=== PATIENT | female | born 1990 | race Two or more races ===

== ENCOUNTER → 2022-12-16 | Outpatient (CLI) | payer MEDICAID ==
[2022-12-16 08:45] LABS: Basophils # (auto) 0 10 ^3/uL (0-0.2); Basophils % (auto) 0.4 % (0.0-2.0); Eosinophils # (auto) 0.1 10 ^3/uL (0-0.8); Eosinophils % (auto) 1.7 % (0.0-7.0); Hematocrit 32.8 % (36.0-46.0); Hemoglobin 10.9 g/dL (12.2-16.2); Lymphocytes # (auto) 1.2 10 ^3/uL (0.4-5.4); Lymphocytes % (auto) 15.2 % (10.0-50.0); Mean Corpuscular Hemoglobin 29.3 pg (28.0-32.0); Mean Corpuscular Hgb Conc. 33.1 g/dL (32.0-36.0); Mean Corpuscular Volume 88.6 fL (80.0-100.0); Monocytes # (auto) 0.5 10 ^3/uL (0-1.3); Monocytes % (auto) 6.5 % (0.0-12.0); Neutrophils # (auto) 6.3 10 ^3/uL (1.6-8.6); Neutrophils % (auto) 76.2 % (37.0-80.0); Red Blood Cells 3.71 10^6/uL (4.0-5.20); Red Cell Distribution Width 14.6 % (11.8-14.3); White Blood Cell 8.2 10^3/uL (4.4-10.8)
[2022-12-17 07:07] LABS: RPR Non Reactive (Non Reactive)
== END | disposition home or self-care (01) ==
LOC: LAB 08:32
PROVIDERS: ATTEND Obstetrics & Gynecology
DX: Z34.80 Encounter for supervision of other normal pregnancy, unspecified trimester (principal); Z3A.00 Weeks of gestation of pregnancy not specified
CPT/HCPCS: 36415; 84112; 85025; 86592

== ENCOUNTER 2023-01-11 05:16 | Inpatient (IN) | payer MEDICAID ==
[2023-01-09 11:35] LABS: Basophils # (auto) 0 10 ^3/uL (0-0.2); Basophils % (auto) 0.4 % (0.0-2.0); Eosinophils # (auto) 0.1 10 ^3/uL (0-0.8); Eosinophils % (auto) 1.4 % (0.0-7.0); Hematocrit 32.8 % (36.0-46.0); Hemoglobin 10.8 g/dL (12.2-16.2); Lymphocytes # (auto) 1.2 10 ^3/uL (0.4-5.4); Lymphocytes % (auto) 15.8 % (10.0-50.0); Mean Corpuscular Hgb Conc. 32.9 g/dL (32.0-36.0); Mean Corpuscular Volume 88.3 fL (80.0-100.0); Monocytes # (auto) 0.5 10 ^3/uL (0-1.3); Monocytes % (auto) 6.7 % (0.0-12.0); Neutrophils # (auto) 5.8 10 ^3/uL (1.6-8.6); Neutrophils % (auto) 75.7 % (37.0-80.0); Red Blood Cells 3.71 10^6/uL (4.0-5.20); Red Cell Distribution Width 15.7 % (11.8-14.3); White Blood Cell 7.7 10^3/uL (4.4-10.8)
[2023-01-09 11:44] LABS: Albumin 2.4 g/dL (3.4-5.0); Calcium 8.8 mg/dL (8.5-10.1); Potassium 3.9 mmol/L (3.5-5.1)
[2023-01-09 11:47] LABS: BUN/Creatinine Ratio 14.3 (10.0-20.0); Bilirubin, Total 0.2 mg/dL (0.2-1.0); Total Protein 6.6 g/dL (6.4-8.2)
[2023-01-09 11:50] LABS: INR 0.89 (0.9-1.15); Partial Thromboplastin Time 26.2 SEC (24.5-34.5)
[2023-01-09 11:52] LABS: Alcohol, Urine < 3.0 mg/dL (0-10); Amphetamine Screen, Urine NEGATIVE (NEGATIVE); Barbiturate Scree,Urine NEGATIVE (NEGATIVE); Benzodiazephine Screen, Urine NEGATIVE (NEGATIVE); Cannabinoid Screen, Urine NEGATIVE (NEGATIVE); Cocaine Screen, Urine NEGATIVE (NEGATIVE); Opiate Scree,Urine NEGATIVE (NEGATIVE); Phencyclidine Screen, Urine NEGATIVE (NEGATIVE)
[2023-01-09 11:53] LABS: Urine Bacteria FEW /hpf (None Seen); Urine Blood TRACE /uL (Negative); Urine Mucus FEW (None Seen); Urine Specific Gravity 1.024 (1.001-1.035); Urine WBC 519 /hpf (0 - 5)
[2023-01-10 07:06] LABS: RPR Non Reactive (Non Reactive)
[~2023-01-11] VITALS: Ht 160 cm; Wt 105.2 kg
[2023-01-11] VITALS (20 sets, daily range): BP systolic 102–128; BP diastolic 61–98
[2023-01-11] MEDS ORDERED: METOCLOPRAMIDE HCL 5MG/ml INJ 2ml VIAL IV ONE (05:30)
[2023-01-11] MEDS ORDERED: LACTATED RINGER'S 1,000 ML IV ONE (05:30)
[2023-01-11] MEDS ORDERED: SODIUM CITR/CITRIC ACID ORAL SOLN 30 ML PO ONE (05:30)
[2023-01-11] MEDS: LACTATED RINGER'S 1,000 ML IV SCH ×3 (06:43→23:36)
[2023-01-11] MEDS ORDERED: TETRACAINE 1% INJ 2 ML VIAL IJ ONE (07:00)
[2023-01-11] MEDS ORDERED: ceFAZolin 2 GM/D5W100ml 100 ML IV ONE (07:15)
[2023-01-11 07:55] LABS: Urine Bacteria MANY /hpf (None Seen); Urine Blood TRACE /uL (Negative); Urine Hyaline Cast FEW /lpf (0 - 2); Urine Mucus FEW (None Seen); Urine Specific Gravity 1.023 (1.001-1.035); Urine WBC 191 /hpf (0 - 5); Urine WBC Clumps PRESENT /hpf (None Seen)
[2023-01-11] MEDS ORDERED: HYDR-4902 PO (07:57)
[2023-01-11] MEDS ORDERED: DOCU-94 PO (07:57)
[2023-01-11] MEDS ORDERED: ONDANSETRON HCL 4 MG/2 ML VIAL IV PRN ×3 (08:00→09:45)
[2023-01-11] MEDS ORDERED: LACT. RINGERS/OXYTOCIN 20UNITS 1,000 ML IV ONE (08:00)
[2023-01-11] MEDS ORDERED: GUM (CHEWING) 1 GUM CHEW CHEW ONE (08:00)
[2023-01-11] MEDS ORDERED: ceFAZolin 1GM/50ML 50 ML IV SCH (08:00)
[2023-01-11] MEDS ORDERED: MORPHINE SULF PF 5 MG/10 ML VIAL ONE (08:05)
[2023-01-11] MEDS ORDERED: fentaNYL CITRATE 100 MCG/2 ML VL ONE (08:05)
[2023-01-11] MEDS ORDERED: MIDAZOLAM HCL 2MG/2ML 2ml VIAL (1mg/ml) ONE (08:05)
[2023-01-11] MEDS ORDERED: oxyTOCIN 10 UNIT/ML 10ML VIAL ONE (08:19)
[2023-01-11 08:42] LABS: Alcohol, Urine < 3.0 mg/dL (0-10); Amphetamine Screen, Urine NEGATIVE (NEGATIVE); Barbiturate Scree,Urine NEGATIVE (NEGATIVE); Benzodiazephine Screen, Urine NEGATIVE (NEGATIVE); Cannabinoid Screen, Urine NEGATIVE (NEGATIVE); Cocaine Screen, Urine NEGATIVE (NEGATIVE); Opiate Scree,Urine NEGATIVE (NEGATIVE); Phencyclidine Screen, Urine NEGATIVE (NEGATIVE)
[2023-01-11] MEDS ORDERED: NALOXONE HCL 0.4 MG/ML VIAL IV PRN (09:45)
[2023-01-11] MEDS ORDERED: LABETALOL HCL 5 MG/ML 4ML SYRINGE IV PRN (09:45)
[2023-01-11] MEDS ORDERED: HYDROmorphone HCL 2 MG/ML VL/or syr IV PRN ×2 (09:45)
[2023-01-11] MEDS ORDERED: diphenhdrAMINE HCL 50 MG/1 ML VL IV PRN (09:45)
[2023-01-11] MEDS ORDERED: ePHEDrine SULFATE 50 MG/ML AMP IV PRN (09:45)
[2023-01-11] MEDS ORDERED: MIDAZOLAM HCL 2MG/2ML 2ml VIAL (1mg/ml) IV PRN (09:45)
[2023-01-11] MEDS ORDERED: DexAMETHasone SOD PHOS 10MG/1ML VIAL INJ IV PRN (09:45)
[2023-01-11] MEDS: ACETAMINOPHEN IV 1000 MG/100ML (10MG/ML) IV PRN ×2 (10:34→18:25)
[2023-01-11] MEDS ORDERED: PHENYLEPHRINE HCL 10 MG/ML VL IV ONE (12:28)
[2023-01-11] MEDS: ceFAZolin 1GM/50ML 50 ML IV SCH ×2 (15:54→23:37)
[2023-01-11 22:35] LABS: Basophils # (auto) 0.1 10 ^3/uL (0-0.2); Basophils % (auto) 0.5 % (0.0-2.0); Eosinophils # (auto) 0.1 10 ^3/uL (0-0.8); Eosinophils % (auto) 0.7 % (0.0-7.0); Hematocrit 31.8 % (36.0-46.0); Hemoglobin 10.2 g/dL (12.2-16.2); Lymphocytes # (auto) 1.3 10 ^3/uL (0.4-5.4); Mean Corpuscular Hemoglobin 28.6 pg (28.0-32.0); Mean Corpuscular Hgb Conc. 32.2 g/dL (32.0-36.0); Mean Corpuscular Volume 88.9 fL (80.0-100.0); Monocytes # (auto) 0.5 10 ^3/uL (0-1.3); Monocytes % (auto) 5.2 % (0.0-12.0); Neutrophils # (auto) 8.5 10 ^3/uL (1.6-8.6); Neutrophils % (auto) 81.6 % (37.0-80.0); Red Blood Cells 3.58 10^6/uL (4.0-5.20); Red Cell Distribution Width 15.7 % (11.8-14.3); White Blood Cell 10.4 10^3/uL (4.4-10.8)
[2023-01-12] VITALS (16 sets, daily range): BP systolic 102–135; BP diastolic 62–92
[2023-01-12] MEDS: ACETAMINOPHEN IV 1000 MG/100ML (10MG/ML) IV PRN (02:06)
[2023-01-12 05:52] LABS: Basophils # (auto) 0.1 10 ^3/uL (0-0.2); Basophils % (auto) 0.6 % (0.0-2.0); Eosinophils # (auto) 0.1 10 ^3/uL (0-0.8); Hematocrit 30.1 % (36.0-46.0); Hemoglobin 10.1 g/dL (12.2-16.2); Lymphocytes # (auto) 1.1 10 ^3/uL (0.4-5.4); Lymphocytes % (auto) 11.3 % (10.0-50.0); Mean Corpuscular Hemoglobin 29.4 pg (28.0-32.0); Mean Corpuscular Hgb Conc. 33.5 g/dL (32.0-36.0); Mean Corpuscular Volume 87.8 fL (80.0-100.0); Monocytes # (auto) 0.5 10 ^3/uL (0-1.3); Monocytes % (auto) 4.8 % (0.0-12.0); Neutrophils # (auto) 8.3 10 ^3/uL (1.6-8.6); Neutrophils % (auto) 82.3 % (37.0-80.0); Red Blood Cells 3.43 10^6/uL (4.0-5.20); Red Cell Distribution Width 16.1 % (11.8-14.3); White Blood Cell 10.1 10^3/uL (4.4-10.8)
[2023-01-12] MEDS ORDERED: HYDROcodone-ACET 5/325MG TAB PO PRN (06:30)
[2023-01-12] MEDS ORDERED: BISACODYL 10 MG RECT SUPP PR PRN (06:30)
[2023-01-12] MEDS ORDERED: IBUPROFEN 800 MG TAB PO PRN (06:30)
[2023-01-12] MEDS: ceFAZolin 1GM/50ML 50 ML IV SCH (07:50)
[2023-01-12] MEDS ORDERED: DOCUSATE CALCIUM 240 MG CAP PO SCH (10:00)
[2023-01-12] MEDS: DOCUSATE SOD 100 MG CAP PO SCH ×2 (10:05→21:51)
[2023-01-12] MEDS: SIMETHICONE 80 MG CHEWABLE TABLET PO SCH ×3 (11:31→21:51)
[2023-01-12] MEDS: LACTATED RINGER'S 1,000 ML IV SCH (13:30)
[2023-01-12] MEDS: HYDROcodone-ACET 5/325MG TAB PO PRN (14:24)
[2023-01-13] MEDS ORDERED: HYDROcodone-ACET 5/325MG TAB ONE (01:27)
[2023-01-13] MEDS: HYDROcodone-ACET 5/325MG TAB PO PRN (01:30)
[2023-01-13] MEDS: SIMETHICONE 80 MG CHEWABLE TABLET PO SCH (05:48)
[2023-01-13 07:20] VITALS: BP 120/79
[2023-01-13 11:00] VITALS: BP 123/76
== END 2023-01-13 12:29 | disposition home or self-care (01) | DRG 539 ==
LOC: LDRP 05:16 → EDSTATUS 10:41 → LDRP 12:10
PROVIDERS: ADMIT Obstetrics & Gynecology; ATTEND Obstetrics & Gynecology
PROC: 0UL70CZ Occlusion of Bilateral Fallopian Tubes with Extraluminal Device, Open Approach (ICD-10-PCS; 2023-01-11)
PROC: 10D00Z1 Extraction of Products of Conception, Low, Open Approach (ICD-10-PCS; principal; 2023-01-11 07:57)
DX: O34.211 Maternal care for low transverse scar from previous cesarean delivery (principal); Z30.2 Encounter for sterilization; Z37.0 Single live birth; Z3A.39 39 weeks gestation of pregnancy
CPT/HCPCS: 36415; 59025; 80053; 80307; 81001; 82962; 85025; 85610; 85730; 86592; 86850; 86900; 86901; 94760; 94762; 96360; 96361; 96366; G0378; J0131; J0690; J2250; J2590

== ENCOUNTER 2023-07-18 20:18 | Emergency (ER) | payer MEDICAID ==
[~2023-07-18] VITALS: Ht 152.4 cm; Wt 107.0 kg
[~2023-07-18 20:18] MED LIST: DOCU-94 PO; HYDR-4902 PO
[2023-07-18 20:25] VITALS: BP 135/85; PULSE 75; RESP 16; TEMP 97.9
[2023-07-18] MEDS ORDERED: AMOX875T3 PO (22:28)
[2023-07-18 22:29] VITALS: O2SAT 100
== END 2023-07-18 22:35 | disposition home or self-care (01) ==
LOC: ER 20:18
DX: H66.91 Otitis media, unspecified, right ear (principal)

== ENCOUNTER 2024-09-11 20:30 | Emergency (ER) | payer MEDICAID ==
[~2024-09-11] VITALS: Ht 165.1 cm; Wt 114.8 kg
[~2024-09-11 20:30] MED LIST changes: +AMOX875T3 PO
[2024-09-11 21:42] LABS: Urine Bacteria None Seen /hpf (None Seen)
[2024-09-11 21:56] LABS: Urine Blood Negative /uL (Negative); Urine Clarity Ex.Turbid (Clear); Urine Color Colorless (Yellow); Urine Protein, UAD TRACE (Negative); Urine Squamous Epithelial Cell MOD /hpf (<5); Urine Urobilinogen 2 mg/dL (Negative); Urine WBC 21 /HPF (0-5)
[2024-09-11 23:52] VITALS: BP 134/82; TEMP 97.5
--- NOTE | 2024-09-11 23:53 | ED.PDOC ---
HPI (NEURO) HPI Comments PT C/O HEADACHE STARTING AROUND 1300 TODAY. TOOK 2 ADVIL AT 1850, STATES HER PAIN HAS IMPROVED. WAS EXPERIENCING DIZZINESS EARLIER, NOT CURRENTLY. STATES HER BP WAS HIGH AT HOME BUT CANNOT REMEMBER HOW HIGH. CURRENTLY BP IS 126/74. NO MEDICAL DENIES NUMBNESS, WEAKNESS, CHEST PAIN, SHORTNESS OF BREATH, WORST HEADACHE OF HER LIFE, FEVER, CHILLS, NAUSEA, VOMITING, BLURRED VISION, OR ANY FOCAL NEURO DEFICITS. HISTORY. 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 History Social History Smoker: Non-Smoker Alcohol: Denies ETOH Use Drugs: Denies Drug Use Constitutional: denies: chills, diaphoresis, fatigue, fever, malaise, sweats, weakness, others EENTM: denies: blurred vision, double vision, ear bleeding, ear discharge, ear drainage, ear pain, ear ringing, eye pain, eye redness, hearing loss, mouth buck n, mouth swelling, nasal discharge, nose bleeding, nose congestion, nose pain, photophobia, tearing, throat pain, throat swelling, voice changes, others Respiratory: denies: cough, hemoptysis, orthopnea, SOB at rest, shortness of breath, SOB with excertion, stridor, wheezing, others Cardiovascular: denies: chest pain, dizzy spells, diaphoresis, Dyspnea on exertion, edema, irregular heart beat, left arm pain, lightheadedness, palpitations, PND, syncope, others Gastrointestinal: denies: abdomen distended, abdominal pain, blood streaked bowels, constipated, diarrhea, dysphagia, difficulty swallowing, hematemesis, melena, nausea, poor appetite, poor fluid intake, rectal bleeding, rectal pain, vomiting, others Genitourinary: denies: abnormal vagina bleeding, burning, dyspareunia, dysuria, flank pain, frequency, hematuria, incontinence, pain, , vagina discharge, urgency, others Neurological: reports: headache; denies: dizziness, fainting, left sided numbness, left sided weakness, numbness, paresthesia, pre-existing deficit, right sided numbness, right sided weakness, seizure, speech problems, tingling, tremors, weakness, others Musculoskeletal: denies: back pain, gout, joint pain, joint swelling, muscle pain, muscle stiffness, neck pain, others Integumetry: denies: bruises, change in color, change in hair/nails, dryness, laceration, lesions, lumps, rash, wounds, others Allergic/Immunocompromised: denies: Difficulty Healing, Frequent Infections, Hives, Itching, others Hematologic/Lymphatic: denies: anemia, blood clots, easy bleeding, easy bruisin g, swollen glands, others Endocrine: denies: excessive hunger, excessive sweating, excessive thirst, excessive urination, flushing, intolerance to cold, intolerance to heat, unexplained weight gain, unexplained weight loss, others Psychiatric: denies: anxiety, bipolar disorder, depression, hopeless, panic disorder, schizophrenia, sleepless, suicidal, others Physical Exam General Appearance: No Apparent Distress, Normal HEENT: Normal ENT Inspection, Pharynx Normal, TMs Normal Neck: Full Range of Motion, Non-Tender Respiratory: Lungs Clear, No Respiratory Distress, Normal Breath Sounds Cardiovascular: No Edema, No JVD, No Murmur, No Gallop, Normal Peripheral Pulses, Regular Rate/Rhythm Breast Exam: Deferred Gastrointestinal: No Organomegaly, Non Tender, No Pulsatile Mass, Normal Bowel Sounds, Soft Genitalia: Deferred Pelvic: Deferred Rectal: Deferred Extremities: Normal capillary refill, Normal inspection, Normal range of motion, Non-tender, No pedal edema Musculoskeletal : Apperance: Normal Neurologic: Alert, international operations manager II-XII nml as Tested, No Motor Deficits, Normal Affect, Normal Mood, No Sensory Deficits Cerebellar Function: Normal Reflexes: Normal Skin: Dry, Normal Color, Warm Lymphatic: No Adenopathy Was a procedure done? Was a procedure done?: No Differential Diagnosis (SZ) Headache: Migraine, Epidural Hemorrhage, Intracerebral Hemorrhage, Subarachnoid Hemorrhage, Subdural Hemorrhage, Meningitis X-Ray, Labs, Meds, VS Vital Signs Date Time Temp Pulse Resp B/P (MAP) Pulse Ox O2 Delivery O2 Flow Rate FiO2 09/11/24 20:50 98.0 80 18 126/74 (91) 100 Lab Test 09/11/24 20:54 Range/Units Urine Color Colorless Yellow Urine Clarity Ex.turbid Clear Urine pH 8.0 5.0-9.0 Urine Specific Zoe 1.020 1.001-1.035 Urine Protein Trace H Negative Urine Ketones Negative Negative Urine Blood Negative Negative /uL Urine Nitrite Negative Negative Urine Bilirubin Negative Negative Urine Urobilinogen 2 H Negative mg/dL Urine Leukocyte Esterase 1+ Negative /uL Urine RBC 3 0 - 4 /hpf Urine Microscopic WBC 21 H 0-5 /HPF Urine Squamous Epithelial Cells Mod <5 /hpf Urine Bacteria None seen None Seen /hpf Urine Glucose Normal Normal mg/dL X-Ray, Labs, Meds, VS Comment PATIENT IS NORMOTENSIVE SHE NOTES HEADACHE HAS RESOLVED SHE REFUSING ANY MEDICATIONS AT THIS TIME ELEVATED BLOOD PRESSURE LIKELY SECONDARY TO ANXIETY. LIKELY STRESS HEADACHE. ADVISED PATIENT TO PURCHASE A BLOOD PRESSURE CUFF AND KEEP A JOURNAL MEASURE BLOOD PRESSURE SEVERAL TIMES A DAY AND FOLLOW UP WITH HER PCP IN 1-2 DAYS. ADVISED HER TO RETURN TO THE ER FOR INCREASING PAIN, NUMBNESS, WEAKNESS, CHEST PAIN, SHORTNESS OF BREATH, DIZZINESS, VISION CHANGES, OR ANY FOCAL NEURO DEFICITS. STATES UNDERSTANDING AND AGREES WITH DISCHARGE PLAN OF CARE. Time of 1ST Reevaluation: 23:51 Reevaluation 1ST: Improved Patient Education/Counseling: Diagnosis, Treatment, Prognosis, Need For Follow Up Family Education/Counseling: No Family Present Departure 1 Departure Time of Disposition: 23:52 Impression: Primary Impression: Headache Qualified Codes: G44.201 - Tension-type headache, unspecified, intractable Additional Impression: Elevated blood pressure reading in office without diagnosis of hypertension Disposition: 01 HOME / SELF CARE / HOMELESS Condition: Stable Discharged With: Self Critical Care Note Critical Care Time?: No Stability Stability form required: RAFFAELE Conte Sep 11, 2024 23:53
[2024-09-11 23:57] VITALS: PULSE 81; RESP 16; O2SAT 100
== END 2024-09-11 23:58 | disposition home or self-care (01) ==
LOC: ER 20:30
DX: R51.9 Headache, unspecified (principal); I10 Essential (primary) hypertension
CPT/HCPCS: 81001